=== PATIENT | male | born 1990 | race Caucasian/White ===

== ENCOUNTER 2016-09-14 08:28 | Emergency (ER) | payer OTHER ==
[2016-09-14 08:36] VITALS: O2SAT 97
--- NOTE | 2016-09-14 09:29 | EDPHY ---
H & P Time Seen by Provider: 09/14/16 08:50 HPI/ROS: CHIEF COMPLAINT: Pain and swelling left 5th finger HISTORY OF PRESENT ILLNESS: 26-year-old male presents to the emergency department by private vehicle concerned about pain and continued swelling to his left 5th finger. The patient states that he dislocated his finger at the PIP joint laterally on 08/21/2016. He had x-rays taken at an urgent care few days later and they were negative for fracture. Was placed in a splint and told to keep the splint on for 1 month. He has not had any follow up with orthopedic surgeon. He recently moved to the [facility]. He is right-hand dominant. Is concerned that he does not have circulation in his finger because of his swollen. He is also concerned that he is unable to flex his finger without significant pain. ROS: Denies numbness or tingling in his fingers, injury to the other fingers, pain in his left wrist. Past Medical/Surgical History: Negative Social History: Single. Recently moved [place] Smoking Status: Never smoked Physical Exam: On examination the patient has swelling and ecchymosis to especially the palmar aspect of the left 5th finger at the PIP joint. Able to passively flex his finger only about 10 degrees before he is limited by pain. The patient is able to actively bend his finger about the same. He has normal sensation to light touch with normal 2 point discrimination. Normal 2 second capillary refill. Nontender to palpate at the MCP joint. Nontender to palpate the D IP joint. No rotational deformities noted. Nail is intact. The other fingers do not appear injured. Constitutional: Initial Vital Signs Temperature (C) 36.9 C 09/14/16 08:32 Heart Rate 58 L 09/14/16 08:32 Respiratory Rate 20 09/14/16 08:32 Blood Pressure 127/59 H 09/14/16 08:32 O2 Sat (%) 97 09/14/16 08:32 O2 Delivery Mode Room Air Allergies/Adverse Reactions: No Known Allergies Allergy (Unverified 09/14/16 08:31) Home Medications: Medication Instructions Recorded NK [No Known Home Meds] 09/14/16 MDM/Departure - MDM Imaging Results: Imaging Impressions Finger X-Ray 09/14/16 08:42 Impression: [place] soft tissue swelling. 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 ED Course/Re-evaluation: X-rays were obtained by the nurse and revealed no fractures. The patient has pain with passive flexion and therefore was placed in [place]um[place] splint and given orthopedic hand surgeon for follow-up. The patient was encouraged to follow up this week to recheck. I explained to the patient that he may need further additional imaging studies or he may have pain with flexion because it is been immobilized for several weeks. - Depart Disposition: Home, Routine, Self-Care Clinical Impression: Sprain of left little finger Qualifiers: Encounter type: initial encounter Sprain of finger site: interphalangeal joint Qualified Code(s): S63.637A - Sprain of interphalangeal joint of left little finger, initial encounter Condition: Good Instructions: Finger Sprain (ED) Additional Instructions: Ibuprofen 600 mg every 8 hours as needed for pain. Since you are still having pain with range of motion, keep splint on until follow-up with orthopedic surgeon. Referrals: Dmitry Elaine MD [Medical Doctor] - 1-2 days without fail (Orthopedic hand surgeon)
[2016-09-14 09:38] VITALS: BP 113/67; PULSE 67; RESP 16; TEMP 98.1
== END 2016-09-14 09:40 | disposition home or self-care (01) ==
DX: S63.637A Sprain of interphalangeal joint of left little finger, initial encounter (principal); X58.XXXA Exposure to other specified factors, initial encounter
CPT/HCPCS: L3925